=== PATIENT | male | born 1950 | race Caucasian/White ===

== ENCOUNTER 2023-07-24 17:42 | Emergency (ER) | payer MEDICARE ==
[~2023-07-24] VITALS: Ht 172.7 cm; Wt 95.3 kg
[2023-07-24 17:53] VITALS: BP 145/86; PULSE 100; RESP 19; TEMP 98.3; O2SAT 97
[2023-07-24] MEDS: LIDOCAINE 5% 1 EA PATCH TP ONE (20:18)
[2023-07-24] MEDS: ACETAMINOPHEN EXTRA STRENGTH 500 MG TAB PO ONE (20:27)
[2023-07-24] MEDS: KETOROLAC 30 MG/ML VIAL IM ONE (20:27)
[2023-07-24] MEDS ORDERED: METH-1681 PO (21:12)
[2023-07-24] MEDS ORDERED: NAPR-337 PO (21:12)
[2023-07-24] MEDS ORDERED: LID5T TP (21:12)
== END 2023-07-24 21:22 | disposition home or self-care (01) ==
LOC: MED 17:42
DX: S76.812A Strain of other specified muscles, fascia and tendons at thigh level, left thigh, initial encounter (principal); Z79.899 Other long term (current) drug therapy; X58.XXXA Exposure to other specified factors, initial encounter; Y93.89 Activity, other specified; Y92.89 Other specified places as the place of occurrence of the external cause; Y99.8 Other external cause status
CPT/HCPCS: 73502; 96372; 99283; J1885; Q0092